=== PATIENT | female | born 2000 | race Caucasian/White ===

== ENCOUNTER 2020-10-11 00:38 | Emergency (ER) | payer MEDICAID, SELFPAY ==
[2020-10-11 00:51] VITALS: BP 119/63; PULSE 117; RESP 18; TEMP 36.9; O2SAT 98; BMI 34.8
--- NOTE | 2020-10-11 01:23 | HMH.EDSKAF ---
ED Disposition Clinical Impression: Pilonidal abscess of fatemeh cleft Qualifiers: Weeks of gestation: 12 weeks Qualified Code(s): Z3A.12 - 12 weeks gestation of Disposition: Home, Self-Care Condition on Discharge: Good Instructions: Pilonidal Cyst Additional Instructions: use meds and call pcp and ob for follow up Prescriptions: cephALEXin [cephALEXin 500mg capsule*] 500 mg PO TID #30 cap Transmission Status: Pending to [id number] clindamycin HCL [Clindamycin HCl] 300 mg PO TID 10 Days #30 cap Transmission Status: Pending to [id number] Referrals: ProviderKeisha MD [Primary Care Provider] - Moo Cole MD [Staff Physician] - - Critical Care Critical Care Time: No Attestation: On 10/11/20, the high probability of a clinically significant, sudden or life threatening deterioration of the following system(s) required my full and direct attention, intervention and personal management. The time I documented below is in addition to time spent performing reported procedures but includes the following listed in this critical care notation. Medical Decision Making - Medical Records Medical records reviewed: Yes: I reviewed the patient's medical records. - Zaire Inquiry Pt receiving controlled substance: No Vital Signs: 10/11/20 00:51 Temperature 98.4 F Temperature Source Oral Pulse Rate [Right] 117 H Respiratory Rate 18 Blood Pressure [Right Arm] 119/63 Blood Pressure Mean [Right Arm] 81 Blood Pressure Source [Right Arm] Automatic Cuff Blood Pressure Position [Right Arm] Sitting 02 Sat by Pulse Oximetry 98 Oxygen Delivery Method Room Air - Lab Data Lab results reviewed: Yes: I reviewed the patient's lab results. Orders (Tests/Meds): ED MEDICATIONS Discontinued Medications Generic Name Dose Route Start Last Admin Trade Name Freq PRN Reason Stop Dose Admin Acetaminophen/Codeine Phosphate 1 kathy 10/11/20 01:29 10/11/20 01:33 Acetaminophen 300mg W/Codeine 30mg Take Home Pack (6) PO 10/11/20 01:30 1 kathy ONCE ONE Administration Ceftriaxone Sodium 1 gm 10/11/20 01:29 10/11/20 01:33 Ceftriaxone 1gm Vial IM 10/11/20 01:30 1 gm ONCE ONE Administration Protocol Lidocaine HCl 0 ml 10/11/20 01:10/11/20 01:34 Lidocaine 1% 5ml Pf Vial IM 10/11/20 01:30 5 ml ONCE ONE Administration - Physician Consults Physician Consulted: nadira Reason -: Pt condition Medical Decision Narrative: pt has prob infected pilonidal cyst in this 12 weeks preg pt - trial of abx Skin/Abscess/FB HPI - General Chief complaint: Skin/Abscess/Foreign Body Stated complaint: Boil on Bottom;Dizzy 12 weeks Time Seen by Provider: 10/11/20 01:24 Mode of Arrival: Ambulatory Source of Information: Patient, Spouse, Medical Record Limitations: No Limitations Description of Symptoms (Recalled from ER Triage Doc. by RN): Pt states she noticed a small bump on her coccyx yesterday and it become much larger today and painfull. Pt has a 3-4 cm cyst on her coccyx, no drainage noted. - History of Present Illness HPI narrative: tender area at anal cleft which has increased over the last 24 hrs- had prev episode in past - no fever or vomiting and is 12 weeks - MD complaint: abscess/boil Onset (ago): day(s) Tetanus up to date: unsure Location: buttocks Severity: moderate Associated symptoms: denies other symptoms Treatments prior to arrival: none - Related Data Previous Rx's Medication Instructions Recorded cephALEXin [cephALEXin 500mg 500 mg PO TID #30 cap 10/11/20 capsule*] clindamycin HCL [Clindamycin HCl] 300 mg PO TID 10 Days #30 cap 10/11/20 Allergies Allergy/AdvReac Type Severity Reaction Status Date / Time No Known Allergies Allergy Verified 10/11/20 01:02 [facility] History - Hepatitis A Screen Drug use history?: No High risk sexual behaviors?: No History of sexually transmitted infection?: No Cu
--- NOTE | 2020-10-11 01:28 | PC.NURSE ---
Dr Sanderson spoke with Dr Machado
[2020-10-11 01:56] VITALS: BP 122/64; PULSE 96; RESP 18; TEMP 36.9; O2SAT 99
== END 2020-10-11 01:59 | disposition home or self-care (01) ==
PROVIDERS: Emergency Provider Emergency Medicine
DX: L05.01 Pilonidal cyst with abscess (principal); Z3A.12 12 weeks gestation of pregnancy; F17.210 Nicotine dependence, cigarettes, uncomplicated
CPT/HCPCS: 96372; 99281

== ENCOUNTER 2020-10-12 14:27 | Emergency (ER) | payer MEDICAID, SELFPAY ==
[2020-10-12 14:29] VITALS: BP 139/85; PULSE 113; RESP 16; TEMP 36.7; O2SAT 98; BMI 34.8
--- NOTE | 2020-10-12 15:17 | HMH.EDSKAF ---
ED Disposition Clinical Impression: Pilonidal abscess of fatemeh cleft Disposition: Home, Self-Care Condition on Discharge: Good Instructions: DI for Skin Abscess Referrals: Arturo Oscar MD [Staff Physician] - - Critical Care Critical Care Time: No Attestation: On 10/12/20, the high probability of a clinically significant, sudden or life threatening deterioration of the following system(s) required my full and direct attention, intervention and personal management. The time I documented below is in addition to time spent performing reported procedures but includes the following listed in this critical care notation. Medical Decision Making - Medical Records Medical records reviewed: Yes: I reviewed the patient's medical records. - Zaire Inquiry Pt receiving controlled substance: No Vital Signs: 10/12/20 14:29 Temperature 98.0 F Temperature Source Oral Pulse Rate [Right Radial] 113 H Respiratory Rate 16 Blood Pressure [Right Arm] 139/85 Blood Pressure Mean [Right Arm] 103 Blood Pressure Source [Right Arm] Automatic Cuff Blood Pressure Position [Right Arm] Sitting 02 Sat by Pulse Oximetry 98 Oxygen Delivery Method Room Air - Lab Data Lab Results 10/12/20 15:32: WBC 18.9 H, RBC 4.46, Hgb 12.2, Hct 38.0, MCV 85.1, MCH 27.4, MCHC 32.2, RDW 12.7, Plt Count 359, MPV 7.9, Neut % (Auto) 77.2, Lymph % (Auto) 15.5, [place] % (Auto) 5.3, Eos % (Auto) 1.7, Baso % (Auto) 0.3, Neut # (Auto) 14.6 H, Lymph # (Auto) 2.9, [place] # (Auto) 1.0, Eos # (Auto) 0.3, Baso # (Auto) 0.1 10/12/20 15:32: Sodium 138, Potassium 3.8, Chloride 105, Carbon Dioxide 27, Anion Gap 9.8, BUN 6 L, Creatinine 0.50 L, Estimated Creat Clear 259, Estimated GFR 156, Est GFR ( Amer) 188, Glucose 71 L, Calcium 9.4 Result diagrams: 10/12/20 15:32 10/12/20 15:32 Orders (Tests/Meds): ED MEDICATIONS Generic Name Dose Route Start Last Admin Trade Name Freq PRN Reason Stop Dose Admin Sodium Chloride 1,000 mls @ 999 mls/hr 10/12/20 15:15 10/12/20 15:31 Sod Chlor 0.9% 1000ml Bag IV 10/12/20 16:15 999 mls/hr .Q1H1M TATI Administration ORDERS Category Date Time Status Complete Blood Count Auto Diff Stat Lab 10/12/20 15:32 Results Wound Culture and Gram Stain Stat Micro 10/12/20 15:56 Ordered - Reevaluation(s) Time: 16:14 Reevaluation #1: On reevaluation, the patient is feeling much better. Tolerated procedure well. We did obtain wound cultures. Patient does have some mild leukocytosis, however her hemodynamics have improved. There is no hypotension or significant evidence of sepsis at this time. Patient afebrile. She is instructed to continue her outpatient regimen of oral antibiotics until completion. She does need to return to the emergency department or her primary care physician for wound reevaluation and packing removal in 48 hours. Patient was given strict return precautions for any change in symptoms. Verbalized understanding. Medical Decision Narrative: 19-year-old female presenting with an abscess on her backside. I did perform bedside ultrasound. The patient does have a large area of loculated effusion. Patient will require incision and drainage. Skin/Abscess/FB HPI - General Chief complaint: Skin/Abscess/Foreign Body Stated complaint: Cyst on rear Time Seen by Provider: 10/12/20 14:30 Mode of Arrival: Ambulatory Limitations: No Limitations Description of Symptoms (Recalled from ER Triage Doc. by RN): pt reports was seen 2 days ago in ER r/t cyst in coccyx. Pt reports she was dianosed with pilonidal cyst and started on antibiotics. Pt reports area has gotten larger and more painful. Pt reports she is unable to sit down. Pt states she spoke with her OB office (pt is 12 weeks ) who send over a referral for a surgeon, pt states she is in too much pain to wait for that appt. - History of Present Illness HPI narrative: 19-year-old female presented to the emergency department with an absc
[2020-10-12 16:02] LABS: Basophils # 0.1 K/mm3 (0-0.2); Basophils % 0.3 % (0.1-2.0); Eosinophils # 0.3 K/mm3 (0.0-0.4); Eosinophils % 1.7 % (0.1-12.0); Hemoglobin 12.2 g/dL (12.2-16.2); Lymphocytes # 2.9 K/mm3 (0.7-4.5); Lymphocytes % 15.5 % (10-50); Mean Corpuscular HGB Conc 32.2 g/dL (31.8-35.4); Mean Corpuscular Hemoglobin 27.4 pg (27.0-31.2); Mean Corpuscular Volume 85.1 fl (81-99); Mean Platelet Volume 7.9 fl (7.4-10.4); Monocytes % 5.3 % (1.7-9.3); Neutrophils # 14.6 K/mm3 (1.8-7.8); Neutrophils % 77.2 % (37.0-80.0); Platelet Count 359 K/mm3 (142-424); Red Blood Count 4.46 M/mm3 (4.20-5.40); Red Cell Distribution Width 12.7 % (11.5-17.5); White Blood Count 18.9 K/mm3 (4.8-10.8)
[2020-10-12 16:04] LABS: Chloride 105 mmol/L (98-107); Potassium 3.8 mmoL/L (3.5-5.1); Sodium 138 mmol/L (136-145)
[2020-10-12 16:07] LABS: Anion Gap 9.8 mEq/L (5-15); Blood Urea Nitrogen 6 mg/dl (7-17); Carbon Dioxide 27 mmol/L (22.0-30.0); Creatinine Clearance Estimated 259 mL/min (50-200); Estimated Glomerular Filt Rate 156 ml/min (>60); GFR (African American) 188 ML/MIN (>60)
[2020-10-12 16:08] LABS: Calcium 9.4 mg/dl (8.4-10.2); Glucose 71 mg/dl (74-100)
[2020-10-12 16:09] LABS: MANUAL DIFFERENTIAL MANUAL DIFFERENTIAL (MANUAL DIFF)
--- NOTE | 2020-10-12 16:16 | PC.NURSE ---
telfa and tegaderm dressing applied to coccyx area over I &D site.
[2020-10-12 16:44] LABS: Lymphocytes % 16 % (10-50); Neutrophils % 83 % (42-76); Platelet Estimate Normal; RBC Morphology Normal; Total Cells Counted 100
[2020-10-12 17:00] VITALS: BP 116/63; PULSE 105; RESP 16; TEMP 36.7; O2SAT 96
== END 2020-10-12 17:01 | disposition home or self-care (01) ==
PROVIDERS: Emergency Provider Emergency Medicine
DX: L05.01 Pilonidal cyst with abscess (principal); Z3A.12 12 weeks gestation of pregnancy; F17.210 Nicotine dependence, cigarettes, uncomplicated
CPT/HCPCS: 10080; 80048; 85007; 85025; 87070; 87186; 87205; 96365; 99283

== ENCOUNTER 2020-10-14 12:20 | Emergency (ER) | payer MEDICAID, SELFPAY ==
[2020-10-14 12:40] VITALS: BP 114/69; PULSE 86; RESP 12; TEMP 37.2; O2SAT 99; BMI 34.8
--- NOTE | 2020-10-14 13:02 | HMH.EDUTC ---
[facility] [place] Clinical Impression: Pilonidal abscess of cleft Disposition: Home, Self-Care Condition on Discharge: Good Instructions: DI for Pilonidal Cyst Drainage or Removal Additional Instructions: Watch area for redness or signs of worsening infection Follow up with your Family Doctor if needed Continue taking antibiotics as prescribed Follow up with OBGYN as scheduled Return if needed Straight to ER if any life threatening symptoms Referrals: Provider,Referral, MD [Primary Care Provider] - As needed Time of Disposition: 13:07 Medical Decision Making - Zaire Inquiry Pt receiving controlled substance: No Zaire was queried for this patient: No Vital Signs: 10/14/20 12:40 Temperature 99 F Temperature Source Oral Pulse Rate [Left] 86 Respiratory Rate 12 Blood Pressure [Right Arm] 114/69 Blood Pressure Mean [Right Arm] 84 02 Sat by Pulse Oximetry 99 Medical Decision Narrative: Packing removed without pain or discomfort, no redness no swelling noted [facility] [place] - General Stated complaint: wound check Time Seen by Provider: 10/14/20 13:02 Mode of Arrival: Ambulatory Source of Information: Patient Limitations: No Limitations Description of Symptoms (Recalled from Triage Doc. by RN): pt states she had a pilonidal cyst lanced and drained two days ago here in the ER. Dr. joseph wanted to her to be seen in the [facility] today to recheck the wound and pack it if necessary. pt is 12w 5d . HEENT Symptoms (Recalled from RN notes): No Resp Symptoms (Recalled from RN notes): No Skin Symptoms (Recalled from RN notes): Yes (pilonidal abcess recheck) MS Symptoms (Recalled from RN notes): No Functional Status (Recalled from RN notes): na - History of Present Illness Provider Complaint: Patient state that area is feeling much better States that she was told to follow up in [facility] or with her PCP in 48 hours to have packing removed States that she has been taking her antibiotics and the area is no longer sore nor red and no longer painful - Related Data Previous Rx's Medication Instructions Recorded cephALEXin [cephALEXin 500mg 500 mg PO TID #30 cap 10/11/20 capsule*] clindamycin HCL [Clindamycin HCl] 300 mg PO TID 10 Days #30 cap 10/11/20 Allergies Allergy/AdvReac Type Severity Reaction Status Date / Time No Known Allergies Allergy Verified 10/14/20 12:30 - Worker's Comp Is this a Worker's Comp case?: No [facility] History - Hepatitis A Screen Drug use history?: No High risk sexual behaviors?: No History of sexually transmitted infection?: No Currently employed?: No Childcare worker?: No Do you have indoor plumbing?: Yes Do you have electricity?: Yes Attestation statement:: This patient has been screened for Hepatitis A risk factors. I have reviewed the patient's past medical history: Yes Medical History: Denies:: Diabetes Mellitus Type 1, Diabetes Mellitus Type 2 - Social History Smoking Status: Current every day smoker Tobacco Type: cigarettes # Packs/Day (cigarettes): 1 Alcohol Intake: never Occupational Status: employed ROS Obtained: Yes All systems reviewed & no additional complaints, Yes Systems reviewed as appropriate & no additional complaints - Constitutional Constitutional: Reports system reviewed and no additional complaints, except as docu, Denies body ache, Denies chills, Denies fever(s), Denies headache(s) - Eyes Eyes: Reports system reviewed and no additional complaints, except as docu - ENT Ears, Nose, Mouth, and Throat: Reports system reviewed and no additional complaints, except as docu - Cardiovascular Cardiovascular: Reports system reviewed and no additional complaints, except as docu - Respiratory Respiratory: Reports system reviewed and no additional complaints, except as docu - Gastrointestinal Gastrointestingal: Reports: system reviewed and no additional complaints, except as docu - Integumentary/Breasts Comments: Packing removal a
[2020-10-14 13:12] VITALS: BP 110/61; PULSE 85; RESP 12; TEMP 37.2
== END 2020-10-14 13:14 | disposition home or self-care (01) ==
PROVIDERS: Emergency Provider Nurse Practitioner
DX: L05.01 Pilonidal cyst with abscess (principal)
CPT/HCPCS: 99202; G0463

== ENCOUNTER 2020-12-04 03:17 | Emergency (ER) | payer MEDICAID, SELFPAY ==
[2020-12-04 03:19] VITALS: BP 127/70; PULSE 92; RESP 16; TEMP 36.8; O2SAT 100; BMI 35.0
--- NOTE | 2020-12-04 03:38 | HMH.EDGENADL ---
ED Disposition Clinical Impression: Tonsillitis Pharyngitis Qualifiers: Pharyngitis/tonsillitis etiology: unspecified etiology Qualified Code(s): J02.9 - Acute pharyngitis, unspecified Disposition: Home, Self-Care Condition on Discharge: Good - Critical Care Critical Care Time: No Attestation: On , the high probability of a clinically significant, sudden or life threatening deterioration of the following system(s) required my full and direct attention, intervention and personal management. The time I documented below is in addition to time spent performing reported procedures but includes the following listed in this critical care notation. Medical Decision Making - Medical Records Medical records reviewed: Yes: I reviewed the patient's medical records. - Zaire Inquiry Pt receiving controlled substance: No Vital Signs: 12/04/20 03:19 Temperature 98.3 F Temperature Source Oral Pulse Rate [Right Radial] 92 H Respiratory Rate 16 Blood Pressure [Right Arm] 127/70 Blood Pressure Mean [Right Arm] 89 Blood Pressure Source [Right Arm] Automatic Cuff Blood Pressure Position [Right Arm] Sitting 02 Sat by Pulse Oximetry 100 Oxygen Delivery Method Room Air Orders (Tests/Meds): ED MEDICATIONS Discontinued Medications Generic Name Dose Route Start Last Admin Trade Name Freq PRN Reason Stop Dose Admin Dexamethasone 8 mg 12/04/20 03:36 Dexamethasone 4mg Tablet PO 12/04/20 03:37 ONCE ONE Medical Decision Narrative: 20-year-old female presenting to the emergency department with chief complaint of pharyngitis. Differential diagnosis includes COVID-19, URI, strep, allergic pharyngitis among others. Exam patient does have enlarged inflamed tonsils will give her one-time dose of dexamethasone swab for Covid low suspicion for strep. Counselled on use of Tylenol at home for pain. General Adult HPI - General Chief complaint: Upper Respiratory Infection Stated complaint: sore throat,earache,mucus in throat Time Seen by Provider: 12/04/20 03:35 Mode of Arrival: Ambulatory Limitations: No Limitations Description of Symptoms (Recalled from ER Triage Doc. by RN): Pt c/o sore throat and boggy ears for 3 days. Pt denies fevers, N/V/D, cough, FARMER, abd pain, soa. - History of Present Illness HPI narrative: 20-year-old female currently 5 months is present emergency department with pharyngitis and complaint of ear fullness. States for the past 2 days she has had sore throat. She denies n/v, soa, fever, chills, diarrhea, cough, runny nose. Does have mucus running down the back of her throat. - Related Data Home Medications Medication Instructions Recorded Confirmed No Known Home Medications 12/04/20 12/04/20 Allergies Allergy/AdvReac Type Severity Reaction Status Date / Time No Known Allergies Allergy Verified 10/14/20 12:30 [facility] History - Hepatitis A Screen Drug use history?: No High risk sexual behaviors?: No History of sexually transmitted infection?: No Currently employed?: No Childcare worker?: No Do you have indoor plumbing?: Yes Do you have electricity?: Yes Attestation statement:: This patient has been screened for Hepatitis A risk factors. I have reviewed the patient's past medical history: Yes Medical History: Denies:: Diabetes Mellitus Type 1, Diabetes Mellitus Type 2 - Social History Smoking Status: Current every day smoker Tobacco Type: cigarettes # Packs/Day (cigarettes): 1 Alcohol Intake: never Occupational Status: employed ROS Obtained: Yes All systems reviewed & no additional complaints Physical Exam - General General appearance: alert, in no apparent distress - Head Head exam: atraumatic, normocephalic - Eye Eye exam: Present: normal appearance, PERRL - ENT ENT exam: Present: other (Enlarged tonsils bilaterally, tonsillith on right tonsil) - Neck Neck exam: Present: normal inspection, full ROM - Chest
[2020-12-04 04:01] LABS: Coronavirus 19, PCR Not Detected (NotDetected); Influenza A, PCR Not Detected (NotDetected); Influenza B, PCR Not Detected (NotDetected)
[2020-12-04 04:02] VITALS: BP 120/82; PULSE 87; RESP 16; TEMP 36.8; O2SAT 100
== END 2020-12-04 04:09 | disposition home or self-care (01) ==
PROVIDERS: Emergency Provider Emergency Medicine
DX: J03.90 Acute tonsillitis, unspecified (principal); Z34.90 Encounter for supervision of normal pregnancy, unspecified, unspecified trimester; F17.210 Nicotine dependence, cigarettes, uncomplicated
CPT/HCPCS: 99282; C9803; U0003; U0005

== ENCOUNTER 2021-01-01 00:22 | Outpatient (CLI) | payer MEDICAID, SELFPAY ==
[2021-01-01 00:31] VITALS: BMI 35.6
[2021-01-01 01:08] LABS: Microscopic, Urine URINE MICROSCOPIC (MICROSCOPIC)
[2021-01-01 01:09] VITALS: BP 109/64; PULSE 68; RESP 18; TEMP 36.6; O2SAT 100; BMI 35.6
[2021-01-01 01:11] LABS: Appearance,Urine CLEAR (Clear); Bilirubin,Urine Negative (Negative); Blood, Urine Negative (Negative); Color,Urine YELLOW (Yellow); Glucose,Urine (UA) Negative (Negative); Ketones,Urine Negative (Negative); Leukocyte Esterase,Urine TRACE (Negative); Nitrate,Urine Negative (Negative); Protein,Urine Negative (Negative); Specific Gravity, Urine <= 1.005 (1.005-1.030); Urobilinogen,Urine 0.2 EU/dl (0.2)
[2021-01-01 01:25] LABS: Barbiturates Screen,Urine Negative ng/ml (<200); Benzodiazepines Screen,Urine Negative ng/ml (<200)
[2021-01-01 01:26] LABS: Amphetamine/Metha Screen,Urine Negative ng/ml (<1000); Cannabinoid Screen,Urine Negative ng/ml (<50)
[2021-01-01 01:27] LABS: Cocaine Screen,Urine Negative ng/ml (<300)
[2021-01-01 01:28] LABS: Methadone Screen,Urine Negative ng/ml (<300); Opiate Screen,Urine Negative ng/ml (<300)
[2021-01-01 01:29] LABS: Phencyclidine Screen,Urine Negative ng/ml (<25)
[2021-01-01 01:30] LABS: Bacteria,Urine 1+ /lpf; Mucus,Urine 1+ /lpf
== END 2021-01-01 01:50 | disposition home or self-care (01) ==
LOC: OBOUT 00:24 → OB 00:25
PROVIDERS: Visit Provider Obstetrics & Gynecology
DX: O26.892 Other specified pregnancy related conditions, second trimester (principal); Z3A.24 24 weeks gestation of pregnancy; R10.31 Right lower quadrant pain
CPT/HCPCS: 59025; 80305; 81001; G0463

== ENCOUNTER 2021-10-03 19:39 | Emergency (ER) | payer MEDICAID, SELFPAY ==
[2021-10-03 19:41] VITALS: BP 103/55; PULSE 97; RESP 19; TEMP 36.8; O2SAT 99; BMI 33.7
--- NOTE | 2021-10-03 20:28 | HMH.EDSKAF ---
ED Disposition Clinical Impression: Pilonidal sinus without abscess Cellulitis Qualifiers: Site of cellulitis: buttock Qualified Code(s): L03.317 - Cellulitis of buttock Qualifiers: Weeks of gestation: 15 weeks Qualified Code(s): Z3A.15 - 15 weeks gestation of Disposition: Home, Self-Care Condition on Discharge: Good Instructions: DI for Skin Abscess Additional Instructions: use meds and see pcp and import/export freight forwarder and surg for follow up Prescriptions: cephALEXin [cephALEXin 500mg capsule*] 500 mg PO TID #30 cap Transmission Status: Pending to [facility] clindamycin HCL [Clindamycin HCl] 300 mg PO TID #30 cap Transmission Status: Pending to [facility] Referrals: Provider,Referral, [Primary Care Provider] - - Critical Care Critical Care Time: No Attestation: On 10/03/21, the high probability of a clinically significant, sudden or life threatening deterioration of the following system(s) required my full and direct attention, intervention and personal management. The time I documented below is in addition to time spent performing reported procedures but includes the following listed in this critical care notation. Medical Decision Making - Medical Records Medical records reviewed: Yes: I reviewed the patient's medical records. - Az[place] Inquiry Pt receiving controlled substance: No Vital Signs: 10/03/21 19:41 Temperature 98.3 F Temperature Source Oral Pulse Rate [Right] 97 H Respiratory Rate 19 Blood Pressure [Right Arm] 103/55 L Blood Pressure Mean [Right Arm] 71 Blood Pressure Source [Right Arm] Automatic Cuff 02 Sat by Pulse Oximetry 99 Oxygen Delivery Method Room Air - Lab Data Lab results reviewed: Yes: I reviewed the patient's lab results. Lab Results 10/03/21 20:53: WBC 19.7 H, RBC 4.82, Hgb 13.9, Hct 40.9, MCV 84.9, MCH 28.9, MCHC 34.0, RDW 12.8, Plt Count 353, MPV 7.1 L, Neut % (Auto) 78.6, Lymph % (Auto) 16.0, [place] % (Auto) 3.9, Eos % (Auto) 1.1, Baso % (Auto) 0.3, Neut # (Auto) 15.5 H, Lymph # (Auto) 3.1, [place] # (Auto) 0.8, Eos # (Auto) 0.2, Baso # (Auto) 0.1, Total Counted 100, Neutrophils % (Manual) 78 H, Lymphocytes % (Manual) 20, Monocytes % (Manual) 2, Nucleated RBCs 1, Platelet Estimate Normal, Stomatocytes 1+ 10/03/21 20:53: Sodium 135 L, Potassium 3.5, Chloride 102, Carbon Dioxide 26, Anion Gap 10.5, BUN 8, Creatinine 0.70, Estimated Creat Clear 178, Estimated GFR 105, Est GFR ( Amer) 127, Glucose 85, Calcium 10.3 H, Total Bilirubin 0.2, AST 21, ALT 16, Alkaline Phosphatase 77, Total Protein 7.4, Albumin 4.1, Globulin 3.3 H, Albumin/Globulin Ratio 1.2 Result diagrams: 10/03/21 20:53 10/03/21 20:53 Orders (Tests/Meds): ED MEDICATIONS Generic Name Dose Route Start Last Admin Trade Name Freq PRN Reason Stop Dose Admin Ceftriaxone Sodium 1 gm/ 50 mls @ 100 mls/hr 10/03/21 21:00 10/03/21 21:16 Sodium Chloride IV 10/17/21 20:59 100 mls/hr Q24H TATI Administration Discontinued Medications Generic Name Dose Route Start Last Admin Trade Name Freq PRN Reason Stop Dose Admin Acetaminophen/Codeine Phosphate 1 packet 10/03/21 20:52 10/03/21 21:16 Acetaminophen 300mg W/Codeine 30mg Take Home Pack (6) PO 10/03/21 20:53 1 packet ONCE ONE Administration - Physician Consults Physician Consulted: hiwot Reason -: Pt condition Medical Decision Narrative: has prob cellulitis in anal cleft pilondial cyst - is 15 weeks Skin/Abscess/FB HPI - General Chief complaint: Skin/Abscess/Foreign Body Stated complaint: possible boil at top of crack Time Seen by Provider: 10/03/21 20:28 Mode of Arrival: Family Vehicle Source of Information: Patient, Medical Record Limitations: No Limitations Description of Symptoms (Recalled from ER Triage Doc. by RN): Pt c/o boil on top of butt . Denies fever, n/v/d, or chills. SHe report pain to the area and difficulty sitting. States she has had this drained before, last vi
--- NOTE | 2021-10-03 20:30 | PC.NURSE ---
speaking with Dr. Bhagat
[2021-10-03 21:03] LABS: Basophils # 0.1 K/mm3 (0-0.2); Basophils % 0.3 % (0.1-2.0); Eosinophils # 0.2 K/mm3 (0.0-0.4); Eosinophils % 1.1 % (0.1-12.0); Hematocrit 40.9 % (37.0-47.0); Hemoglobin 13.9 g/dL (12.2-16.2); Lymphocytes # 3.1 K/mm3 (0.7-4.5); Mean Corpuscular Hemoglobin 28.9 pg (27.0-31.2); Mean Corpuscular Volume 84.9 fl (81-99); Mean Platelet Volume 7.1 fl (7.4-10.4); Monocytes # 0.8 K/mm3 (0.1-1.0); Monocytes % 3.9 % (1.7-9.3); Neutrophils # 15.5 K/mm3 (1.8-7.8); Neutrophils % 78.6 % (37.0-80.0); Platelet Count 353 K/mm3 (142-424); Red Blood Count 4.82 M/mm3 (4.20-5.40); Red Cell Distribution Width 12.8 % (11.5-17.5); White Blood Count 19.7 K/mm3 (4.8-10.8)
[2021-10-03 21:05] LABS: MANUAL DIFFERENTIAL MANUAL DIFFERENTIAL (MANUAL DIFF)
[2021-10-03 21:12] LABS: Chloride 102 mmol/L (98-107)
[2021-10-03 21:13] LABS: Potassium 3.5 mmoL/L (3.5-5.1); Sodium 135 mmol/L (136-145)
[2021-10-03 21:15] LABS: Alanine Aminotransferase 16 U/L (12-78); Alkaline Phosphatase 77 U/L (38-126); Anion Gap 10.5 mEq/L (5-15); Aspartate Amino Transferase 21 U/L (14-36); Bilirubin,Total 0.2 mg/dl (0.2-1.3); Blood Urea Nitrogen 8 mg/dl (7-17); Calcium 10.3 mg/dl (8.4-10.2); Carbon Dioxide 26 mmol/L (22.0-30.0); Creatinine Clearance Estimated 178 mL/min (50-200); Estimated Glomerular Filt Rate 105 ml/min (>60); GFR (African American) 127 ML/MIN (>60); Glucose 85 mg/dl (74-100)
[2021-10-03 21:16] LABS: Albumin Level 4.1 g/dl (3.5-5.0); Albumin/Globulin Ratio 1.2 (1.1-1.8); Globulin 3.3 g/dL (1.3-3.2); Total Protein,Serum 7.4 g/dl (6.3-8.2)
[2021-10-03 21:20] LABS: Lymphocytes % 20 % (10-50); Monocytes % 2 % (2-9); Neutrophils % 78 % (42-76); Nucleated Red Blood Cells 1; Platelet Estimate Normal; Total Cells Counted 100
[2021-10-03 21:21] LABS: Stomatocytes 1+
[2021-10-03 22:06] VITALS: BP 103/55; PULSE 97; RESP 19; TEMP 36.8; O2SAT 99
== END 2021-10-03 22:08 | disposition home or self-care (01) ==
PROVIDERS: Emergency Provider Emergency Medicine
DX: O26.892 Other specified pregnancy related conditions, second trimester (principal); L05.92 Pilonidal sinus without abscess; L03.317 Cellulitis of buttock; Z3A.15 15 weeks gestation of pregnancy; Z72.0 Tobacco use
CPT/HCPCS: 80053; 85007; 85025; 96374; 99284; J0696

== ENCOUNTER 2021-10-05 22:13 | Emergency (ER) | payer MEDICAID, SELFPAY ==
[2021-10-05 22:15] VITALS: BP 116/55; PULSE 102; RESP 16; TEMP 36.8; O2SAT 98; BMI 33.7
--- NOTE | 2021-10-05 22:30 | PC.NURSE ---
15 BLADE AND LIDOCAINE 1% TO BEDSIDE PER MD REQUEST.
--- NOTE | 2021-10-05 22:35 | HMH.EDSKAF ---
ED Disposition Clinical Impression: Pilonidal abscess of fatemeh cleft Abscess of skin or subcutaneous tissue Qualifiers: Site of cutaneous abscess: buttock Qualified Code(s): L02.31 - Cutaneous abscess of buttock Qualifiers: Weeks of gestation: 15 weeks Qualified Code(s): Z3A.15 - 15 weeks gestation of Disposition: Home, Self-Care Condition on Discharge: Good Instructions: DI for Skin Abscess Additional Instructions: use meds and see senior tax specialist and surg for follow up Referrals: Provider,MD Keisha [Primary Care Provider] - Golden Hopkins MD [Staff Physician] - Moo Cole MD [Staff Physician] - - Critical Care Critical Care Time: No Attestation: On 10/05/21, the high probability of a clinically significant, sudden or life threatening deterioration of the following system(s) required my full and direct attention, intervention and personal management. The time I documented below is in addition to time spent performing reported procedures but includes the following listed in this critical care notation. Medical Decision Making - Medical Records Medical records reviewed: Yes: I reviewed the patient's medical records. - [place] Inquiry Pt receiving controlled substance: No Vital Signs: 10/05/21 22:15 Temperature 98.3 F Temperature Source Oral Pulse Rate [Left Radial] 102 H Respiratory Rate 16 Blood Pressure [Right Arm] 116/55 L Blood Pressure Mean [Right Arm] 75 Blood Pressure Source [Right Arm] Automatic Cuff Blood Pressure Position [Right Arm] Sitting 02 Sat by Pulse Oximetry 98 Oxygen Delivery Method Room Air - Lab Data Lab results reviewed: Yes: I reviewed the patient's lab results. Orders (Tests/Meds): ORDERS Category Date Time Status Wound Culture and Gram Stain Stat Micro 10/05/21 23:00 Received Medical Decision Narrative: i/d at this time with purulent drainage but will need surg eval Skin/Abscess/FB HPI - General Chief complaint: Skin/Abscess/Foreign Body Stated complaint: cyst on upper crack Time Seen by Provider: 10/05/21 22:35 Mode of Arrival: Ambulatory Source of Information: Patient, Medical Record Limitations: No Limitations Description of Symptoms (Recalled from ER Triage Doc. by RN): PT SEEN IN ER TWO DAYS AGO AND STARTED ON ABX, AND GIVEN PAIN MEDS FOR A PILONIDAL CYST. PT STATES HER PILONIDAL CYST HAS CONTINUED TO CAUSE HER PAIN. SHE IS OUT OF PAIN MEDS AND SHE FEELS THE CYST HAS GROWN. PT REPORTS THAT SHE HAS TAKEN HER MEDICATION ORDERED. PT STATES SHE IS AND HAS HAD TROUBLE FINDING SOMEONE TO ASSIST HER WITH TREATMENT. - History of Present Illness HPI narrative: has pilonidal cyst and had been started on abx - pt is - no vaginal bleeding complaint: abscess/boil Onset (ago): day(s) Location: buttocks Severity: moderate Consistency: intermittent Associated symptoms: denies other symptoms Treatments prior to arrival: antibiotic, prescription analgesic - Related Data Home Medications Medication Instructions Recorded Confirmed cephALEXin [cephALEXin 500mg 500 mg PO TID 10/05/21 10/05/21 capsule*] clindamycin HCL [Clindamycin HCl] 300 mg PO TID 10/05/21 10/05/21 Allergies Allergy/AdvReac Type Severity Reaction Status Date / Time No Known Allergies Allergy Verified 10/14/20 12:30 [facility] History - Hepatitis A Screen Attestation statement:: This patient has been screened for Hepatitis A risk factors. I have reviewed the patient's past medical history: Yes Medical History: Denies:: Diabetes Mellitus Type 1, Diabetes Mellitus Type 2 Other Surgeries: No: - Social History Smoking Status: Current every day smoker Tobacco Type: cigarettes # Packs/Day (cigarettes): 1 Alcohol Intake: never Occupational Status: employed ROS Obtained: Yes All systems reviewed & no additional complaints - Constitutional Constitutional: Denies fever(s) - Eyes Eyes: Denies change in visio
--- NOTE | 2021-10-05 23:28 | PC.NURSE ---
Addendum entered by Yaritza Boswell RN 10/05/21 23:29: LATE ENTRY [id number] Original Note: CONSENT OBTAINED PER Tj METZGER RN. I&D PERFORMED PER . WOUND CULTURE OBTAINED AND SENT TO LAB. PT TOLERATED WELL.
[2021-10-05 23:29] VITALS: BP 115/65; PULSE 88; RESP 18; TEMP 36.8; O2SAT 99
== END 2021-10-05 23:31 | disposition home or self-care (01) ==
PROVIDERS: Emergency Provider Emergency Medicine
DX: O26.892 Other specified pregnancy related conditions, second trimester (principal); L05.01 Pilonidal cyst with abscess; B95.7 Other staphylococcus as the cause of diseases classified elsewhere; Z16.11 Resistance to penicillins; Z16.24 Resistance to multiple antibiotics; Z3A.15 15 weeks gestation of pregnancy
CPT/HCPCS: 10080; 87070; 87077; 87186; 87205; 99282